=== PATIENT | female | born 1965 | race Caucasian/White ===

== ENCOUNTER 2016-08-08 15:38 | Emergency (ER) | payer MEDICAID, OTHER ==
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
[2016-08-08] MEDS ORDERED: ONDANSETRON 4 MG ODT TAB ONE (16:44)
[2016-08-08] MEDS ORDERED: HYDROMORPHONE HCL 2 MG/ML SYRINGE ONE (16:44)
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
== END 2016-08-08 18:23 | disposition home or self-care (01) ==
LOC: ED 15:38
DX: S82.52XA Displaced fracture of medial malleolus of left tibia, initial encounter for closed fracture (principal); S82.402A Unspecified fracture of shaft of left fibula, initial encounter for closed fracture; F17.210 Nicotine dependence, cigarettes, uncomplicated; V13.4XXA Pedal cycle driver injured in collision with car, pick-up truck or van in traffic accident, initial encounter; Y92.410 Unspecified street and highway as the place of occurrence of the external cause; F41.9 Anxiety disorder, unspecified; Z88.0 Allergy status to penicillin
CPT/HCPCS: 73610; 73560; 99284 ×2; 96372; J1170; A9270

== ENCOUNTER 2016-08-19 09:28 | Day surgery (SDC) | payer MEDICAID, OTHER ==
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
[2016-08-19] MEDS ORDERED: CLINDAMYCIN 600 MG PREMIX 50 ML IV PRN (09:30)
[2016-08-19] MEDS ORDERED: IV START KIT ONE (09:38)
[2016-08-19] MEDS ORDERED: LACTATED RINGERS 1,000 ML ONE (09:38)
[2016-08-19] MEDS ORDERED: CLINDAMYCIN 600 MG PREMIX 50 ML IV ONE (09:40)
[2016-08-19] MEDS ORDERED: MIDAZOLAM HCL 5 MG/5 ML VIAL ONE (10:35)
[2016-08-19] MEDS ORDERED: FENTANYL 100 MCG/2 ML VIAL ONE ×2 (10:35→13:58)
[2016-08-19] MEDS ORDERED: PROPOFOL 20 ML IV ONE (10:37)
[2016-08-19] MEDS ORDERED: LIDOCAINE 2% (PRES FREE) 5 ML VIAL ONE (10:38)
[2016-08-19] MEDS ORDERED: ROPIVACAINE 0.5% 30 ML VIAL ONE (10:52)
[2016-08-19] MEDS ORDERED: NERVE BLOCK PROCEDURAL TRAY 1 EACH ONE (10:53)
[2016-08-19] MEDS ORDERED: NALOXONE HCL 0.4 MG/ML VIAL IV PRN (12:18)
[2016-08-19] MEDS ORDERED: MEPERIDINE 25 MG/ML SYRINGE IV PRN (12:18)
[2016-08-19] MEDS ORDERED: ONDANSETRON 4 MG/2ML 2 ML VIAL IV PRN ×2 (12:18→14:30)
[2016-08-19] MEDS ORDERED: HYDRALAZINE HCL 20 MG/1 ML VIAL IV PRN (12:18)
[2016-08-19] MEDS ORDERED: ATROPINE SULFATE 0.4 MG/1 ML VIAL IV PRN (12:18)
[2016-08-19] MEDS ORDERED: PROMETHAZINE HCL 25 MG/ML VIAL IM PRN (12:18)
[2016-08-19] MEDS ORDERED: LABETALOL HCL 5 MG/ML 20ML VIAL IV PRN (12:18)
[2016-08-19] MEDS ORDERED: LACTATED RINGERS 1,000 ML IV SCH ×2 (12:30→14:30)
[2016-08-19] MEDS ORDERED: KETOROLAC TROMETHAMINE 30 MG/ML 1 ML VIAL ONE (13:26)
[2016-08-19] MEDS ORDERED: ONDANSETRON 4 MG/2ML 2 ML VIAL ONE (13:26)
--- NOTE | 2016-08-19 13:54 | RAD ---
Exam: Two-view left ankle COMPARISON: 08/08/2016 INDICATION: ORIF left ankle. Findings: Fluoroscopy was provided for Dr. Tellez. A radiologist was not present. 73.8 seconds of fluoroscopy time was utilized. 5 static images were submitted for interpretation. Bone detail is limited. 2 partially threaded screws were placed through the medial malleolar fracture, and 2 transsyndesmotic screws are also placed. There was improved alignment of the ankle mortise at the end of the procedure. This examination is otherwise limited for interpretation. IMPRESSION: Fluoroscopy was provided for Dr. Tellez for ORIF of the left ankle. Please see his notes for discussion.
[2016-08-19] MEDS: FENTANYL 100 MCG/2 ML VIAL IV PRN ×2 (14:01→14:05)
--- NOTE | 2016-08-19 14:02 | PCMBPN ---
Brief Post Op Note: Date of Procedure: 08/19/16 Preoperative Diagnosis: 1. left ankle syndesmotic disruption and medial malleolus fracture Postoperative Diagnosis: 1. [Same] Procedure: Left ankle syndesmotic disruption ORIF and medial malleolus ORIF Surgeon: Ignacio Tellez MD Assist: Walker NEON MOLDER Anesthesia: GETA, Left leg popliteal nerve block (single shot Findings: pt had a displaced medial malleolus and a positive Stress view on exam in the OR. The medial malleolus was fixed with two 4.0 cannulated screws measuring 52mm and 48mm and the syndesmosis was fixed with a 36mm and 48mm synthes 3.5mm screws Condition: extubated, stable vitals, transferred to pacu Complications: None IV Fluids: 1300 mLs of LR Urine Output: 0 mLs Estimated Blood Loss: 20 mLs Tourniquet Time: [N/A] Specimens: [N/A] Implants: Synthes 4.0 cannulated screws x 2 in medial mall and synthes 3.5mm x 2 cortical screws Drains: [N/A] PLAN: NWB on the LLE. Kathleen for pain control.CLinda for 24 hours post-op and ASA for DVT prophylaxis.
[2016-08-19] MEDS ORDERED: HYDROMORPHONE HCL 1 MG/ML SYRINGE ONE (14:16)
[2016-08-19] MEDS: HYDROMORPHONE HCL 1 MG/ML SYRINGE IV PRN ×2 (14:17→14:24)
[2016-08-19] MEDS ORDERED: ACETAMINOPHEN 325 MG TABLET PO PRN (14:30)
[2016-08-19] MEDS ORDERED: HYDROCODONE/ACETAMINOPHEN 5/325MG TABLET PO PRN (14:30)
[2016-08-19] MEDS ORDERED: DIPHENHYDRAMINE HCL 50 MG/1 ML VIAL IV PRN (14:30)
[2016-08-19] MEDS ORDERED: HYDROMORPHONE HCL 1 MG/ML SYRINGE IV PRN (14:30)
--- NOTE | 2016-08-19 15:12 | RAD ---
Exam: Two-view left ankle COMPARISON: Intraoperative exam 08/19/2016 and radiographs 08/08/2016 INDICATION: Postop left ankle ORIF. FINDINGS: AP and lateral views of the left ankle were obtained. Postsurgical changes of ORIF are identified within the left ankle, including 2 screws through the medial malleolus and 2 transsyndesmotic screws. Fracture fragments are in near-anatomic alignment. Ankle mortise is intact. IMPRESSION: Postoperative changes of ORIF within the left ankle, with improved alignment of the ankle mortise.
[2016-08-19] MEDS ORDERED: HYDROCODONE/ACETAMINOPHEN 5/325MG TABLET ONE (15:14)
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
== END 2016-08-19 16:45 | disposition home or self-care (01) ==
LOC: SDC 09:28
PROVIDERS: ATTEND Orthopaedic Surgery
DX: S82.52XA Displaced fracture of medial malleolus of left tibia, initial encounter for closed fracture (principal); S93.432A Sprain of tibiofibular ligament of left ankle, initial encounter; F17.210 Nicotine dependence, cigarettes, uncomplicated